=== PATIENT | male | born 1960 | race Caucasian/White ===

== ENCOUNTER 2024-06-12 23:20 | Emergency (ER) | payer OTHER, SELFPAY ==
[2024-06-12] VITALS (10 sets, daily range): BP systolic 69–120; BP diastolic 52–67; PULSE 61–85; RESP 10–31; TEMP 36.3–37.1; O2SAT 97–100
[2024-06-12] MEDS: ONDANSETRON INJ 4 MG/2 ML VIAL IV PUSH (23:12)
--- NOTE | 2024-06-12 23:24 | PC.NURSE ---
mass transfusion vorb by edp dr. johnson. pt to receive blood. pt gave verbal conset to x3 RNs. RAULITO, RN, NADINE RN, and HERMELINDA. RN
[2024-06-12] MEDS: TUBING, BLOOD SET 1 EACH XX ×2 (23:26→23:37)
--- NOTE | 2024-06-12 23:27 | ECG_ITS ---
Test Date: 2024-06-12 23:24:18 Measurements Intervals [place] Rate: 75 P: 62 W[place]: 143 QRS: -24 QRSD: 99 T: 24 QT: 402 QTc: 449 Interpretive Statements SINUS RHYTHM NORMAL ECG No previous ECG available for comparison Electronically Signed On 06-13-2024 07:37:34 CDT by Emir Toledo D.O.
[2024-06-12] MEDS: PANTOPRAZOLE SODIUM IV 40 MG VIAL IV PUSH (23:36)
[2024-06-12] MEDS: SODIUM CHLORIDE 0.9% IV 100 ML 999 ML ×2 (23:37)
--- NOTE | 2024-06-12 23:39 | PC.NURSE ---
blood started as mass trasnfusion on gravity tubing per [facility] edp dr. johnson at [id number]. RAULITO RN, CH RN, MA RN and EDP dr. Johnson at bedside.
[2024-06-12 23:42] LABS: Basophils Absolute Auto 0.1 K/mm3 (0.0-0.1); Basophils Percent Auto 0.7 % (0.2-1.2); Eosinophils Absolute Auto 0.3 K/mm3 (0-0.3); Eosinophils Percent Auto 2.7 % (0-4.4); Hematocrit 35.9 % (42.0-52.0); Hemoglobin 12.1 g/dL (14.0-18.0); Immature Granulocyte Absolute 0.05 K/mm3 (0.00-0.031); Immature Granulocyte Percent A 0.5 % (0-0.5); Immature Platelet Fraction Pct 3.8 % (0.9-11.2); Lymphocytes Absolute Auto 3.34 K/mm3 (0.9-3.2); Lymphocytes Percent Auto 30.3 % (18.3-44.2); Mean Corpuscular HGB Conc 33.7 g/dl (32-36); Mean Corpuscular Hemoglobin 35.6 pg (26-34); Mean Corpuscular Volume 105.6 fl (80-100); Mean Platelet Volume 10.4 fl (7.4-10.4); Monocytes Absolute Auto 0.8 K/mm3 (0.1-0.6); Neutrophils Absolute Auto 6.5 K/mm3 (1.3-6.7); Neutrophils Percent Auto 58.8 % (45.5-73.1); Platelet Count Result 140 k/mm3 (150-375); Red Cell Distribution Width 13.2 % (11.5-14.5)
--- NOTE | 2024-06-12 23:53 | PC.NURSE ---
Mass transfusion completed at this time. pt vitals signs are increasing.
[2024-06-12 23:54] LABS: INR 1.3; Prothrombin Time 16.4 Seconds (11.1-14.7)
[2024-06-13] VITALS (7 sets, daily range): BP systolic 112–130; BP diastolic 65–74; PULSE 66–76; RESP 13–19; O2SAT 99–100
[2024-06-13 00:01] LABS: Alanine Aminotransferase 113 U/L (6-50); Albumin Level 2.8 g/dL (3.5-5.1); Alkaline Phosphatase 55 U/L (38-126); Anion Gap 7 mmol/L (4-12); Aspartate Amino Transferase 122 U/L (17-59); Bilirubin,Total 1.6 mg/dL (0.2-1.3); Blood Urea Nitrogen 14 mg/dL (9-20); Calcium 7.8 mg/dL (8.4-10.2); Carbon Dioxide 22 mmol/L (22-30); Chloride 108 mmol/L (98-107); Estimated CRCL calculation 90 ml/min; Estimated Glomerular Filt Rate > 60; Glucose 115 mg/dL (65-110); Potassium 4.1 mmol/L (3.4-5.0); Sodium 137 mmol/L (137-145)
--- NOTE | 2024-06-13 00:02 | ED_ITS ---
HPI - General Adult General Chief complaint: Nausea/Vomiting/Diarrhea Stated complaint: coughing blood History of Present Illness HPI narrative: Patient is a 63-year-old male who presents emergency department this evening after multiple episodes of bright red blood hematemesis. Per EMS report, patient states that approximately 2 hours ago he started to have large bouts of bright red blood vomit. Patient was feeling sick to his stomach and nauseous prior to this episode. He decided to wait it out at home and took a nap. Woke up an hour later and had another 3 massive vomiting episodes of bright red blood with blood clots. EMS showed me a picture of patient's bedroom floor covered with blood and blood clots. Upon patient's arrival blood pressure is 67/52 mmHg. EMS started a 1 L bolus with normal saline. Patient denies any history of cirrhosis, upper versus lower GI bleed, denies any blood thinner use. Currently denying any abdominal pain. Related Data Allergies Allergy/AdvReac Type Severity Reaction Status Date / Time No Known Allergies Allergy Verified 06/12/24 23:25 Review of Systems 2 Review of Systems: All systems are reviewed and are negative unless stated otherwise in the HPI. Exam 2 Narrative: General: Alert, awake, afebrile, in moderate distress, pale, active bright red blood hematemesis. HEENT: PERRL, no rhinorrhea, no post nasal drip, oropharynx clear. Neck: Trachea midline, no JVD, no lymphadenopathy. Cardiovascular: Regular rate and rhythm, no murmurs, rubs or gallops, no peripheral edema. Respiratory: Clear to auscultation bilaterally, no tachypnea, no wheezing, no rhonchi, no rubs, no respiratory distress. Abdomen: Soft, nontender, nondistended, no rebound, no guarding, no peritoneal signs. Musculoskeletal: No joint swelling or deformity, normal muscle tone. Skin: No rashes or petechia, no signs of infection. Psychiatric: Alert and oriented, normal behavior and judgment for situation. Neurological: Alert and oriented to person, place, and time. Follows all commands. No focal deficits, speech is clear and fluent. Course Vital Signs Vital signs: Vital Signs Temperature 98.7 F 06/12/24 23:15 Pulse Rate 85 06/12/24 23:15 Respiratory Rate 31 H 06/12/24 23:15 Pulse Oximetry 97 06/12/24 23:15 Oxygen Delivery Room Air 06/12/24 23:15 Temperature 97.4 F L 06/12/24 23:51 Pulse Rate 78 06/12/24 23:51 Respiratory Rate 16 06/12/24 23:51 Blood Pressure 118/59 L 06/12/24 23:51 Pulse Oximetry 100 06/12/24 23:51 Oxygen Delivery Room Air 06/12/24 23:15 Medical Decision Making MDM Narrative Medical decision making narrative: The patient was evaluated by myself in the emergency department. History is obtained from patient who is an independent historian and physical exam was performed. External medical records were reviewed at this time. IV was established and pertinent tests were ordered. Shortly after patient arrival, patient had 3 large episodes of bright red blood emesis with large blood clots. Patient was administered 2 units of O-negative blood immediately due to concern for massive GI bleed and hemorrhagic shock with a blood pressure of 69/52 mmHg. Current blood pressure 118/72 mmHg after 2 units of O negative blood and 1 L IV fluid bolus with normal saline. Assess him transfer line contacted at [phone] and transfer to [facility] was initiated at this time for GI and IR services. Patient consents to transfer. Transfer was accepted under accepting physician Dr. Read as an ED to ED transfer. Laboratory results obtained revealing hemoglobin of 12.1, white blood cell count 11, platelet count 140, total bili 1.6, AST 122, ALT 113 otherwise unremarkable. Differential diagnosis considerations include massive upper GI bleed, lower GI bleed, esophageal varices. Comorbidities impacting this visit include none. Patient denies any history of esophageal varices, cirrhosis or any current history of alcohol abuse stating that he has quit drinking alcohol over 20 years ago. I have evaluated and discussed social determinants of health with the patient that could potentially impact subsequent diagnosis and treatment plans. On repeat assessment of the patient, reevaluation revealed that the patient is doing well and is in no acute distress. Patient symptoms have improved since he arrived to our emergency department. Repeat vital signs were all reviewed and noted to be stable. Differential diagnosis and treatment plan were discussed with the patient at bedside. Patient agrees with discussion and after shared medical decision making agrees with transfer. All questions were answered to the patient's satisfaction. Critical care time of 67 minutes, exclusive of separately performed procedures, necessary for treating or preventing eminent or life-threatening deterioration of patient's condition of massive upper GI bleed requiring transfusion of 2 units of O-negative blood, focused on patient care provided personally by me and time spent during initial evaluation, physical examination, ordering and performing treatments and interventions, ordering and reviewing laboratory studies, ordering and reviewing radiographic studies, re-evaluation of the patient's condition, evaluation of the patient's response to treatment, and discussion of patient case with multiple consultants. Vital Signs Vital Signs: Vital Signs Temperature 98.7 F 06/12/24 23:15 Pulse Rate 85 06/12/24 23:15 Respiratory Rate 31 H 06/12/24 23:15 Pulse Oximetry 97 06/12/24 23:15 Oxygen Delivery Room Air 06/12/24 23:15 Temperature 97.4 F L 06/12/24 23:51 Pulse Rate 78 06/12/24 23:51 Respiratory Rate 16 06/12/24 23:51 Blood Pressure 118/59 L 06/12/24 23:51 Pulse Oximetry 100 06/12/24 23:51 Oxygen Delivery Room Air 06/12/24 23:15 Lab Data 06/12/24 23:30 06/12/24 23:30 Labs: Lab Results 06/12/24 Range/Units 23:30 WBC 11.0 H (4.5-10.0) K/mm3 RBC 3.40 L (4.6-6.20) M/mm3 Hgb 12.1 L (14.0-18.0) g/dL Hct 35.9 L (42.0-52.0) % MCV 105.6 H (80-100) fl MCH 35.6 H (26-34) pg MCHC 33.7 (32-36) g/dl RDW 13.2 (11.5-14.5) % Plt Count 140 L (150-375) k/mm3 MPV 10.4 (7.4-10.4) fl Immature Gran % (Auto) 0.5 (0-0.5) % Neut % (Auto) 58.8 (45.5-73.1) % Lymph % (Auto) 30.3 (18.3-44.2) % [place] % (Auto) 7.0 (2.6-8.5) % Eos % (Auto) 2.7 (0-4.4) % Baso % (Auto) 0.7 (0.2-1.2) % Lymph # (Auto) 3.34 H (0.9-3.2) K/mm3 [place] # (Auto) 0.8 H (0.1-0.6) K/mm3 Eos # (Auto) 0.3 (0-0.3) K/mm3 Baso # (Auto) 0.1 (0.0-0.1) K/mm3 Abs Immat Gran (auto) 0.05 H (0.00-0.031) K/mm3 Absolute Neuts (auto) 6.5 (1.3-6.7) K/mm3 Absolute Nucleated RBC 0.000 (0.0-0.012) K/mm3 Nucleated RBC % 0.0 (0.0-0.2) % % Immature Plt Fraction 3.8 (0.9-11.2) % PT 16.4 H (11.1-14.7) Seconds INR 1.3 APTT 31.0 (22.3-36.8) Seconds Sodium 137 (137-145) mmol/L Potassium 4.1 (3.4-5.0) mmol/L Chloride 108 H (98-107) mmol/L Carbon Dioxide 22 (22-30) mmol/L Anion Gap 7 (4-12) mmol/L BUN 14 (9-20) mg/dL Creatinine 0.70 (0.7-1.3) mg/dL Estim Creat Clear Calc 90 ml/min Estimated GFR > 60 (59 - ) Glucose 115 H (65-110) mg/dL Calcium 7.8 L (8.4-10.2) mg/dL Total Bilirubin 1.6 H (0.2-1.3) mg/dL AST 122 H (17-59) U/L ALT 113 H (6-50) U/L Alkaline Phosphatase 55 (38-126) U/L Total Protein 6.0 L (6.3-8.2) g/dL Albumin 2.8 L (3.5-5.1) g/dL Blood Type A Positive Antibody Screen Pending Crossmatch See Detail Critical Care Time Critical Care Time Total Critical Care Time: 67 (Refer to [facility] for attestation) Discharge Plan Discharge Clinical Impression: Hemorrhagic shock, Acute upper GI bleed Patient Disposition: Acute Care Hospital Condition: Guarded Prognosis Patient Language: Macanese Follow-up/Referrals: CHIP,WHITNEY Andrews M.D. [Non-Staff] - Time of Disposition: 00:05
--- NOTE | 2024-06-13 00:34 | PC.NURSE ---
Upon arrival patient had approximately 500mls of bloody emesis in emesis bag. Prior to arrival ems estimated blood loss at 200mls
[2024-06-13 00:40] LABS: Lipase 143 U/L (23-300)
== END 2024-06-13 00:43 | disposition short-term general hospital (02) ==
PROVIDERS: Emergency Provider Emergency Medicine
DX: R57.8 Other shock (principal); K92.2 Gastrointestinal hemorrhage, unspecified
CPT/HCPCS: 36415; 36430; 80053; 83690; 83735; 85025; 85055; 85610; 85730; 86850; 86900; 86901; 86920; 86923; 93005; 96361; 96374; 96375; 99291; J2405; J2470; P9016